=== PATIENT | female | born 1950 | race Caucasian/White ===

== ENCOUNTER → 2018-06-25 | Outpatient (CLI) | payer MEDICARE, OTHER ==
--- NOTE | 2018-06-25 11:36 | Diagnostic Imaging Report ---
EXAM: SKULL SERIES < FOUR VIEWS DATE: 06/25/2018 10:18 AM INDICATION: Metallic bodies COMPARISON: None FINDINGS: 2 views of the skull shows a right frontal craniotomy with associated calvarial hardware. There are intracranial metallic clips, possibly aneurysm clips, in the right frontal area. No acute bony abnormality. IMPRESSION: Calvarial and intracranial metallic hardware as described. Signed by: Dr. Kenny Munoz M.D. on 06/25/2018 11:33 AM
--- NOTE | 2018-06-25 15:21 | Diagnostic Imaging Report ---
TECHNIQUE: Magnetic resonance imaging of the RIGHT ANKLE was performed WITHOUT injected contrast. HISTORY: Swollen, pain, burning sensation, INFLAMED OR PARTIAL TEAR TENDON COMPARISON: None available. FINDINGS: LIGAMENTS: Medial Complex: Increased intrasubstance signal of the deep fibers of the deltoid ligament, compatible with remote partial tear. Lateral Complex: The tibiofibular ligaments are intact. Fused thickening and increased intrasubstance signal of the talofibular ligaments and calcaneofibular ligament, compatible with scarring versus chronic stress-related changes. TENDONS: Medial: Intact Lateral: Complex tearing and attenuation of the peroneus brevis tendon adjacent to the tip of the lateral malleolus, adjacent moderate fluid. Anterior: Intact Achilles: Intact, trace fluid in the adjacent retrocalcaneal bursa. BONES: No focal or infiltrative bone marrow replacing abnormality. No acute fracture or osteonecrosis. JOINTS: Cartilage: Intermediate to high-grade erosion at the medial aspect of the talar dome. Other: Fluid within the joints is within physiologic limits. SOFT TISSUES: Otherwise, unremarkable. IMPRESSION: 1. Degenerative partial tearing of the peroneus brevis tendon and adjacent peroneal tenosynovitis. 2. Minimal retrocalcaneal bursitis. 3. Minimal tibiotalar osteoarthrosis. Signed by: Dr. Boris Gamboa D.O., M.M.M. on 06/25/2018 3:17 PM
== END ==
LOC: MRI 09:30
PROVIDERS: ATTEND Podiatrist Foot & Ankle Surgery
DX: S86.311A Strain of muscle(s) and tendon(s) of peroneal muscle group at lower leg level, right leg, initial encounter (principal)
CPT/HCPCS: 70250

== ENCOUNTER → 2018-07-02 | Day surgery (SDC) | payer MEDICARE, OTHER ==
[2018-06-30 14:08] LABS: BASOPHILS # (AUTO) 0.1 (0.0-0.1); BASOPHILS % 1.3 % (0.0-1.0); EOSINOPHILS # (AUTO) 0.1 (0.0-0.4); EOSINOPHILS % 2.1 % (0.0-6.0); HEMATOCRIT 46.8 % (34.2-44.1); HEMOGLOBIN 15.9 g/dL (12.0-16.0); LYMPHOCYTES # (AUTO) 2.8 (1.0-3.2); LYMPHOCYTES % 41.8 % (18.0-39.1); MEAN CORPUSCULAR HEMOGLOBIN 30.8 pg (28-32); MEAN CORPUSCULAR VOLUME 90.7 fL (81-99); MONOCYTES # (AUTO) 0.6 (0.2-0.8); MONOCYTES % 8.3 % (4.4-11.3); NEUTROPHILS # (AUTO) 3.1 (2.1-6.9); NEUTROPHILS % 46.1 % (38.7-80.0); PLATELET COUNT 250 x10e3/uL (140-360); RED BLOOD COUNT 5.16 x10e6/uL (3.6-5.1); RED CELL DISTRIBUTION WIDTH 13.1 % (11.7-14.4)
--- NOTE | 2018-06-30 16:32 | Diagnostic Imaging Report ---
ADDENDUM #1 Addendum: Indication: Preoperative, foot surgery Signed by: Dr. Kenny Munoz M.D. on 07/02/2018 12:18 PM ORIGINAL REPORT EXAM: CHEST 2 VIEWS DATE: 06/30/2018 1:48 PM INDICATION: Preadmission foot surgery COMPARISON: None FINDINGS: Lines and tubes: None Heart size normal. No focal pulmonary opacity, pleural effusion or pneumothorax. Upper abdomen unremarkable. No acute bony abnormality. IMPRESSION: No evidence for acute disease. Signed by: Dr. Kenny Munoz M.D. on 06/30/2018 4:28 PM
[~2018-07-02] MED LIST: ACETAMINOPHEN 1000 MG/100 ML IV ONE; BUPIVACAINE HCL 0.5% INJ 30 ML VIAL INJ ONE; CEFAZOLIN SOD 1 GM/NS 50ML 50 ML IV ONE; CELEXA40 MG PO; DEXAMETHASONE SOD PHOS INJ 4 MG/ML VIAL ONE; ELIQUIS PO; FENTANYL CITRATE/PF 100MCG/2 ML INJ ONE; LIDOCAINE HCL 2% LOCAL INJ 5 ML SDV VIAL INJ ONE; MIDAZOLAM HCL 2 MG/2 ML VIAL ONE; ONDANSETRON HCL INJ 2MG/ML 2ML 2 MG/ML VIAL ONE; PRAVASTATIN SOD40 MG PO; PROPOFOL IV EMULSION 10 MG/ML 20 ML VIAL ONE; SEVOFLURANE INHAL SOLN 250 ML PEN BTL ONE; TOPROL XL25 MG PO
--- OUTSIDE RECORDS SUMMARY | 2018-07-02 05:10 | XMS REPORT ---
Author Author [facility] Address Unknown Phone Unavailable Care Team Providers Care Pharmacy Technician Inpatient Name Role Phone Essie JONES Unavailable Unavailable Problems This patient has no known problems. Allergies, Adverse Reactions, Alerts This patient has no known allergies or adverse reactions. Medications This patient has no known medications. Results Test Description Test Time Test Comments Text Results Atomic Results Result Comments CHEST 2 VIEWS 2018-06-30 16:27:00 [place] [address] Patient Name: ACOSTA PATEL MR #: [id number] : 1950 Age/Sex: 68/F Req #: [id number] Adm Physician: Ordered by: Essie JONES DPM Report #: [id number] Location: OR Room/Bed: Procedure: [id number] DX/CHEST 2 VIEWS Exam Date: 06/30/18 Exam Time: 1405 REPORT STATUS: Signed EXAM: CHEST 2 VIEWS DATE: 06/30/2018 1:48 PM INDICATION: Preadmission foot surgery COMPARISON: None FINDINGS: Lines and tubes: None Heart size normal. No focal pulmonary opacity, pleural effusion or pneumothorax. Upper abdomen unremarkable. No acute bony abnormality. IMPRESSION: No evidence for acute disease. Signed by: Dr. Lucila Haas M.D. on 06/30/2018 4:28 PM Dictated By: LUCILA HAAS MD 27 Transcribed By: TIFFANY on 06/30/181627 COPY TO: Essie JONES DPM MRI ANKLE RIGHT WO 2018-06-25 15:08:00 [facility] [address] [place] [address] Patient Name: ACOSTA PATEL MR #: [id number] : 1950 Age/Sex: 68/F Req #: [id number] Adm Physician: Ordered by: Essie JONES DPM Report #: [id number] Location: MRI Room/Bed: Procedure: [id number] MRI/MRI ANKLE RIGHT WO Exam Date: 06/25/18 Exam Time: 1415 REPORT STATUS: Signed TECHNIQUE: Magnetic resonance imaging of the RIGHT ANKLE was performed WITHOUT injected contrast. HISTORY: Swollen, pain, burning sensation, INFLAMED OR PARTIAL TEAR TENDON COMPARISON: None available. FINDINGS: LIGAMENTS: Medial Complex: Increased intrasubstance signal of the deep fibers of the deltoid ligament, compatible with remote partial tear. Lateral Complex: The tibiofibular ligaments are intact. Fused thickening and increased intrasubstance signal of the talofibular ligaments and calcaneofibular ligament, compatible with scarring versus chronic stress-related changes. TENDONS: Medial: Intact Lateral: Complex tearing and attenuation of the peroneus brevis tendon adjacent to the tip of the lateral malleolus, adjacent moderate fluid. Anterior: Intact Achilles: Intact, trace fluid in the adjacent retrocalcaneal bursa. BONES: No focal or infiltrative bone marrow replacing abnormality. No acute fracture or osteonecrosis. JOINTS: Cartilage: Intermediate to high-grade erosion at the medial aspect of the talar dome. Other: Fluid within the joints is within physiologic limits. SOFT TISSUES: Otherwise, unremarkable. IMPRESSION: 1. Degenerat rayo partial tearing of the peroneus brevis tendon and adjacent peroneal tenosynovitis. 2. Minimal retrocalcaneal bursitis. 3. Minimal tibiotalar osteoarthrosis. Signed by: Dr. Tera Gamboa D.O., M.M.M. on 06/25/2018 3:17 PM Dictated By: TERA GAMBOA DO Transcribed By: TIFFANY on 06/25/181516 COPY TO: Essie JONES DPM SKULL SERIES < FOUR VIEWS 2018-06-25 11:30:00 [place] [address] Patient Name: ACOSTA PATEL MR #: [id number] : 1950 Age/Sex: 68/F Req #: [id number] Adm Physician: Ordered by: TERA GAMBOA DO Report #: [id number] Location: MRI Room/Bed: Procedure: [id number] DX/SKULL SERIES < FOUR VIEWS Exam Date: 06/25/18 Exam Time: 1015 REPORT STATUS: Signed EXAM: SKULL SERIES < FOUR VIEWS DATE: 06/25/2018 10:18 AM INDICATION: Metallic bodies COMPARISON: None FINDINGS: 2 views of the skull shows a right frontal craniotomy with associated calvarial hardware. There are intracranial metallic clips, possibly aneurysm clips, in the right frontal area. No acute bony abnormality. IMPRESSION: Calvarial and intracranial metallic hardware as described. Signed by: Dr. Lucila Haas M.D. on 06/25/2018 11:33 AM Dictated By: LUCILA HAAS MD 1133 Transcribed By: TIFFANY on 06/25/18 1133 COPY TO: TERA GAMBOA DO
[2018-07-02 08:30] VITALS: BP 123/65
--- NOTE | 2018-07-02 15:16 | Operative Report ---
DATE OF PROCEDURE: 07/02/2018 SURGEON: Mely Falcon DPM HIDE OR SKIN BUFFER SURGEON: Essie Ren DPM PREOPERATIVE DIAGNOSIS: Right peroneus brevis tendon rupture. POSTOPERATIVE DIAGNOSIS: Right peroneus brevis tendon rupture. PLANNED PROCEDURE: Right peroneal tendon repair. HIDE OR SKIN BUFFER: Mely Falcon DPM. ANESTHESIA: General with a postoperative block consisting of 20 mL of 0.25% Marcaine plain. HEMOSTASIS: Pneumatic thigh tourniquet set at 350 mmHg for a total time of approximately 45 minutes. MATERIALS: 4-0 Prolene, 3-0 Vicryl. ESTIMATED BLOOD LOSS: Less than 10 mL. PATHOLOGY: None. PROCEDURE NOTE: The patient was seen in the preoperative waiting room, where the correct procedure and side was identified. The patient was brought to the operating room and placed on the operating room table in the supine position. General anesthesia was initiated. At this time, a well-padded pneumatic tourniquet was placed about the patient's right thigh. The right foot, ankle, and leg were then scrubbed, prepped and draped in the usual aseptic manner. The right foot, ankle, and leg were exsanguinated with an Esmarch bandage and the pneumatic thigh tourniquet was inflated to 350 mmHg for a total time of approximately 45 minutes. Attention was directed to the lateral aspect of the patient's right ankle, where a 6 cm curvilinear incision was made directly over the posterior inferior aspect of the patient's right lateral malleolus. The incision was carried through the subcutaneous tissue them from deep or underlying structures. All vital and neurovascular structures were identified, retracted superiorly and inferiorly. The sural nerve was easily identified and retracted inferiorly. Next, the peroneal tendon sheath was identified and incised utilizing a blunt tenotomy. It should be noted that upon incision into the tendon sheath, a moderate amount of serous fluid was drained from the incision site. As the tendon sheath was explored and allowed for good visualization of the peroneal tendons, a longitudinal split-thickness tear was noted at the peroneus brevis tendon with multiple areas of tendon degeneration. The peroneus longus tendon was explored in the same area and noted to be intact with no evidence of any tearing. The diseased tendon was debrided with a #15 blade back to anatomic alignment and the tendon was repaired utilizing a 4-0 Prolene with a tubularized fashion. Next, the peritenon and tendon sheath were reapproximated with 3-0 Vicryl and subcutaneous tissue was reapproximated with 3-0 Vicryl. The tendon was found to be functioning along the tendon sheath and the fibular groove appropriately. The incision site was then reapproximated with simple interrupted sutures with 4-0 Prolene. The incision site was then dressed with Adaptic, 4x4's, Kerlix, Nick wrap, and a CAM walker boot. The patient tolerated the procedure and anesthesia well. The patient was transferred to the postoperative recovery room with vital signs stable and neurovascular status intact. The patient was monitored there for a short period of time before being sent home with the following written and oral instructions: 1. Keep the dressing clean, dry, and intact. 2. The patient is to remain nonweightbearing in a CAM walker boot to avoid any ambulation until being seen in the office. 3. The patient was given the office number to try to contact us if any problems should arise. Dictated by Mely Falcon DPM S DORIS Romero (Charley)/KYE /[id number] ZAHRA
== END | disposition home or self-care (01) ==
LOC: OR 05:00
PROVIDERS: ATTEND Podiatrist Foot & Ankle Surgery
DX: M66.861 Spontaneous rupture of other tendons, right lower leg (principal); M76.71 Peroneal tendinitis, right leg; G47.33 Obstructive sleep apnea (adult) (pediatric); I48.91 Unspecified atrial fibrillation; I10 Essential (primary) hypertension; F32.9 Major depressive disorder, single episode, unspecified; Z88.6 Allergy status to analgesic agent; Z01.810 Encounter for preprocedural cardiovascular examination; Z01.812 Encounter for preprocedural laboratory examination; Z01.818 Encounter for other preprocedural examination; Z79.02 Long term (current) use of antithrombotics/antiplatelets; Z86.73 Personal history of transient ischemic attack (TIA), and cerebral infarction without residual deficits
CPT/HCPCS: 27658; 36415; 71046; 85025; 93005; J0131; J0690; J1100; J2001; J2250; J2405; J2704